=== PATIENT | male | born 1985 | race Caucasian/White ===

== ENCOUNTER 2021-11-04 10:19 | Emergency (ER) | payer OTHER ==
[~2021-11-04] VITALS: Ht 182.9 cm; Wt 97.5 kg
[~2021-11-04 10:19] MED LIST: Flagyl500 MG PO; LEVO750 PO
[2021-11-04] MEDS ORDERED: LIDO700A20 TOP (11:57)
[2021-11-04] MEDS ORDERED: Valium5 MG PO (11:57)
== END 2021-11-04 12:12 | disposition home or self-care (01) ==
LOC: ER 10:19
DX: M62.830 Muscle spasm of back (principal); F17.200 Nicotine dependence, unspecified, uncomplicated; Z88.6 Allergy status to analgesic agent
CPT/HCPCS: 96372; 99282-25; A9270; J1885